=== PATIENT | male | born 2000 | race Caucasian/White ===

== ENCOUNTER → 2023-06-03 10:38 | Outpatient (CLI) | payer OTHER, SELFPAY ==
[2023-06-06 04:21] LABS: Chlamydia trachomatis NAA Negative (Negative); Neisseria gonorrhoeae NAA Negative (Negative)
== END ==
PROVIDERS: PCP Family Medicine; Visit Provider Physician Assistant Medical
DX: J02.9 Acute pharyngitis, unspecified (principal); Z20.2 Contact with and (suspected) exposure to infections with a predominantly sexual mode of transmission
CPT/HCPCS: 87070; 87491; 87591